=== PATIENT | female | born 1960 | race Caucasian/White ===

== ENCOUNTER → 2019-04-29 | Day surgery (SDC) | payer OTHER ==
[~2019-04-29] MED LIST: IV RINGERS,LACTATED 1000ML 1,000 ML IV ONE; LEVO50TA PO; LIDOCAINE 2% PF 5 ML VIAL. ONE; PROPOFOL 20 ML IV ONE
[2019-04-29 08:00] VITALS: BP 118/60
--- NOTE | 2019-04-29 13:02 | HP ---
ADMIT DATE: 04/29/2019 REFERRING PHYSICIAN: None. REASON: Colorectal screening. HISTORY OF PRESENT ILLNESS: A 59-year-old female with past medical history significant for hypothyroidism is seen for interval colonoscopy exam done approximately 10 years ago was unrevealing for polyps or cancers at that time. Bowel habits are regular without diarrhea or constipation. There has been no melena and/or hematochezia. Weight and appetite are stable. She is otherwise without additional complaints. PAST MEDICAL HISTORY: Hypothyroidism. ALLERGIES: None. PAST SURGICAL HISTORY: None. MEDICATIONS: Include levothyroxine 60 mcg daily. FAMILY AND SOCIAL HISTORY: Social smoker and drinker. FAMILY HISTORY: Noncontributory. REVIEW OF SYSTEMS: As per records. PHYSICAL EXAMINATION: GENERAL: Reveals a well-nourished, well-developed female who is alert, cooperative, in no acute distress. VITAL SIGNS: Temperature 97.3, pulse 60, respirations 20. HEENT: Normocephalic, atraumatic head. Pupils and extraocular muscles are not tested. Sclerae anicteric. NECK: Supple. LUNGS: Clear. CARDIOVASCULAR: Reveals S1, S2 without S3, S4 or appreciable murmur. ABDOMEN: Reveals soft abdomen, normal bowel sounds, without appreciable hepatosplenomegaly. EXTREMITIES: Reveals no cyanosis, clubbing or edema. IMPRESSION AND PLAN: Colorectal screening is recommended at this time. Risks and benefits of procedure including risks of hemorrhage and perforation during the operation were discussed. The patient is willing to proceed. STARR GAGE MD DR: KARL/alexsandra JOB#: [id number] / [id number]
== END | disposition home or self-care (01) ==
LOC: ENDOS 05:51
PROVIDERS: ATTEND Internal Medicine Gastroenterology
DX: Z12.11 Encounter for screening for malignant neoplasm of colon (principal); K57.30 Diverticulosis of large intestine without perforation or abscess without bleeding; K64.0 First degree hemorrhoids; E03.9 Hypothyroidism, unspecified; F17.210 Nicotine dependence, cigarettes, uncomplicated; Z98.890 Other specified postprocedural states; Z72.89 Other problems related to lifestyle
CPT/HCPCS: 45378; J2001; J2704